=== PATIENT | male | born 1965 ===

== ENCOUNTER 2020-12-11 17:58 | Emergency (ER) | payer OTHER ==
[~2020-12-11] VITALS: Ht 170.2 cm; Wt 95.3 kg
--- NOTE | 2020-12-11 18:29 | NUR ---
PT IS IN ROOM #1B. DR ROJO EVALUATED THE PT.
[2020-12-11] MEDS ORDERED: ACETAMINOPHEN 325 MG TABLET PO ONE (18:30)
[2020-12-11] MEDS ORDERED: ACETAMINOPHEN 325 MG TABLET ONE (18:44)
[2020-12-11 18:55] LABS: HEMATOCRIT 41.6 % (36.7-47.1); MEAN CORPUSCULAR HEMOGLOBIN 30.9 uug (23.8-33.4); PLATELET COUNT (AUTO) 128 K/uL (152-348)
[2020-12-11 18:58] LABS: CREATININE 1.2 mg/dL (0.6-1.3); POTASSIUM 4.1 mmol/L (3.5-5.1)
[2020-12-11] MEDS ORDERED: DEXAMETHASONE SOD PHOSPHATE 4 MG INJ IV ONE (19:00)
[2020-12-11 19:03] LABS: BILIRUBIN,TOTAL 0.7 mg/dL (0.2-1.0); TOTAL PROTEIN, SERUM 7.1 g/dL (6.4-8.2)
--- NOTE | 2020-12-11 19:08 | NUR ---
Recieved report from KELLI Soto.
[2020-12-11] MEDS ORDERED: IV NORMAL SALINE 1000 ML BAG IV ONE (19:15)
[2020-12-11] MEDS ORDERED: DEXAMETHASONE SOD PHOSPHATE 10 MG INJ ONE (19:36)
--- NOTE | 2020-12-11 19:52 | NUR ---
Pt sp02 88% on RA. Switched him from nonrebreather to nasal cannula so pt. can eat. Current sp02 is 95% w/ 4L oxygen nc. Gave pt. sandwich and pudding. Pt. says he feels sweaty but otherwise no new symptoms. Oral temp was 98.7. Pt. stable, no signs of distress. Will continue to monitor.
--- NOTE | 2020-12-11 19:56 | NUR ---
Pt. has [employer], spoke w/ Jamir from [employer] [place] [employer], [place] md will be calling to speak w/ dr. Leiva.
--- NOTE | 2020-12-11 21:00 | NUR ---
Pt sleeping. Vss. No signs of distress.
--- NOTE | 2020-12-11 22:30 | NUR ---
Gave report to KELLI Ferrell. Pt. did not report any medical history to myself or the triage nurse but according to Mariaelena pts. records at [facility] show hx HTN, etoh abuse, thrombocytopenia, hepatomegaly, splenomegaly.
--- NOTE | 2020-12-11 22:34 | NUR ---
LYRIC GILBERT, CALLED BACK. PT ACCEPTED TO [facility] UNDER PHYSICIAN: Erik HUANG BED: [id number] REPORT NUMBER: [phone] [facility] ETA [id number]
--- NOTE | 2020-12-11 23:26 | NUR ---
Ambulance picked up pt.
== END 2020-12-12 | disposition short-term general hospital (02) ==
LOC: ER 18:01
DX: U07.1 COVID-19 (principal); J96.01 Acute respiratory failure with hypoxia; E87.1 Hypo-osmolality and hyponatremia; E87.8 Other disorders of electrolyte and fluid balance, not elsewhere classified; D69.6 Thrombocytopenia, unspecified
CPT/HCPCS: 36415; 71045; 80053; 83605; 84484; 85025; 86140; 87040; 93005; 96361; 96374; 99291; J1100; 70030-TC; A4663; J7030